=== PATIENT | female | born 1950 | race Caucasian/White ===

== ENCOUNTER → 2016-08-14 | Outpatient (CLI) | payer MEDICARE, OTHER ==
--- NOTE | 2016-08-14 09:07 | REPMRS ---
Patient History The patient states she had a clinical breast exam in 08/2016. Patient is postmenopausal. Family history of breast cancer in maternal aunt at age 50 or over and ovarian cancer in paternal grandmother at age 50 or over. Taking estrogen for 10 years. Digital Woman Screen Mammo: August 14, 2016 - Exam #: [id number] Bilateral CC and MLO view(s) were taken. Technologist: Roxanna Locke, Technologist Prior study comparison: August 14, 2015, digital woman screen mammo performed at [facility] [employer]. August 07, 2014, digital woman screen mammo performed at [facility] [employer] [facility]. August 02, 2013, digital woman screen mammo performed at [facility] [employer]. FINDINGS: The breast tissue is heterogeneously dense. This may lower the sensitivity of mammography. There is a moderate amount of heterogeneously dense fibroglandular tissue which is fairly symmetric. There is no interval development of dominant mass, architectural distortion, or clustered microcalcification typical of malignancy. There has been no change in the appearance of the mammogram from the prior studies. ASSESSMENT: BI-RADS/ACR category 1 mammogram. Negative. Recommendation Routine screening mammogram of both breasts in 1 year (for women over age 40). This mammogram was interpreted with the aid of an FDA-approved computer-aided dectection system. Electronically Signed By: Joaquim Burns MD 08/14/16 0907
== END ==
LOC: M WHC 08:24
PROVIDERS: ATTEND Nurse Practitioner Family
DX: Z01.419 Encounter for gynecological examination (general) (routine) without abnormal findings (principal); Z12.31 Encounter for screening mammogram for malignant neoplasm of breast; Z78.0 Asymptomatic menopausal state; Z12.12 Encounter for screening for malignant neoplasm of rectum
CPT/HCPCS: 82270; G0101; G0202

== ENCOUNTER → 2016-10-15 | Outpatient (CLI) | payer MEDICARE, OTHER ==
[2016-10-15 09:52] LABS: BASO % 0.8 % (0.0-1.0); EOS # 0.2 K/mm3 (0.0-0.50); LARGE UNSTAINED CELL # 0.1 K/mm3 (0.0-0.4); LARGE UNSTAINED CELL % 2.1 % (0.0-4.0); LYMPH # 1.8 K/mm3 (1.5-4.5); LYMPH % 30.4 % (24.0-44.0); MEAN CORPUSCULAR HEMOGLOBIN 31.4 pg (27.0-33.0); MEAN CORPUSCULAR HGB CONC 33.3 g/dl (32.0-36.5); MEAN CORPUSCULAR VOLUME 94.5 fl (80.0-96.0); MONO # 0.4 K/mm3 (0.0-0.8); MONO % 7.2 % (0.0-5.0); NEUTROPHILS # 3.1 K/mm3 (1.8-7.7); NEUTROPHILS % 56.5 % (36.0-66.0); PLATELET COUNT, AUTOMATED 292 k/mm3 (150-450); RED CELL DISTRIBUTION WIDTH 12.2 % (11.5-14.5); WHITE BLOOD COUNT 5.6 K/mm3 (4.0-10.0)
[2016-10-15 12:15] LABS: ALBUMIN 4.1 GM/DL (3.2-5.2); ALBUMIN/GLOBULIN RATIO 1.46 (1.00-1.93); ALKALINE PHOSPHATASE 67 U/L (45-117); ALT/SGPT 25 U/L (12-78); ANION GAP 5 MEQ/L (8-16); AST/SGOT 18 U/L (15-37); BILIRUBIN,TOTAL 0.5 MG/DL (0.2-1.0); BLOOD UREA NITROGEN 17 MG/DL (7-18); CALCIUM LEVEL 9.6 MG/DL (8.8-10.2); CARBON DIOXIDE LEVEL 33 MEQ/L (21-32); CHLORIDE LEVEL 103 MEQ/L (98-107); CHOLESTEROL LEVEL 225 MG/DL (<200); CREATININE FOR GFR 0.82 MG/DL (0.55-1.02); GLOMERULAR FILTRATION RATE > 60.0 (>45); GLUCOSE, FASTING 86 MG/DL (80-110); POTASSIUM SERUM 4.5 MEQ/L (3.5-5.1); SODIUM LEVEL 141 MEQ/L (136-145); TOTAL PROTEIN 6.9 GM/DL (6.4-8.2); TRIGLYCERIDES LEVEL 81 MG/DL (<150)
== END ==
LOC: M WUC 08:01
PROVIDERS: ATTEND Nurse Practitioner Family
DX: E78.5 Hyperlipidemia, unspecified (principal); E55.9 Vitamin D deficiency, unspecified

== ENCOUNTER → 2017-04-28 | Outpatient (REF) | payer MEDICARE, OTHER ==
[2017-04-28 09:46] LABS: ALBUMIN 4.1 GM/DL (3.2-5.2); ALBUMIN/GLOBULIN RATIO 1.41 (1.00-1.93); ALKALINE PHOSPHATASE 59 U/L (45-117); ALT/SGPT 30 U/L (12-78); ANION GAP 7 MEQ/L (8-16); AST/SGOT 20 U/L (15-37); BILIRUBIN,TOTAL 0.6 MG/DL (0.2-1.0); BLOOD UREA NITROGEN 18 MG/DL (7-18); CALCIUM LEVEL 9.6 MG/DL (8.8-10.2); CARBON DIOXIDE LEVEL 30 MEQ/L (21-32); CHLORIDE LEVEL 101 MEQ/L (98-107); CHOLESTEROL LEVEL 192 MG/DL (<200); CREATININE FOR GFR 0.74 MG/DL (0.55-1.02); GLOMERULAR FILTRATION RATE > 60.0 (>45); GLUCOSE, FASTING 85 MG/DL (80-110); POTASSIUM SERUM 4.7 MEQ/L (3.5-5.1); SODIUM LEVEL 138 MEQ/L (136-145); TRIGLYCERIDES LEVEL 81 MG/DL (<150)
== END ==
LOC: M LABWUC 09:07
PROVIDERS: ATTEND Nurse Practitioner Family
DX: E78.5 Hyperlipidemia, unspecified (principal)

== ENCOUNTER → 2017-09-28 | Outpatient (CLI) | payer MEDICARE, OTHER | LOC: M WHC 14:44 | DX: Z12.31 Encounter for screening mammogram for malignant neoplasm of breast (principal); Z01.419 Encounter for gynecological examination (general) (routine) without abnormal findings (principal); Z78.0 Asymptomatic menopausal state; Z80.41 Family history of malignant neoplasm of ovary; Z92.23 Personal history of estrogen therapy; Z12.12 Encounter for screening for malignant neoplasm of rectum; N95.2 Postmenopausal atrophic vaginitis | CPT/HCPCS: 77067 ==

== ENCOUNTER → 2018-09-09 | Outpatient (CLI) | payer MEDICARE, OTHER ==
--- NOTE | 2018-09-09 10:22 | REP ---
Left ring finger series: Four views: History: Sprain. Findings: Four views of the left ring finger demonstrate soft tissue swelling about the PIP joint. There is no evidence of fracture. No opaque foreign body is seen. No erosive change. 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 Impression: Soft-tissue swelling at the PIP joint of the ring finger. No acute bony abnormality. Electronically Signed by Tima Burns MD 09/09/2018 10:39 A
== END ==
LOC: M WUC 09:34
PROVIDERS: ATTEND Physician Assistant
DX: M79.89 Other specified soft tissue disorders (principal); S63.615A Unspecified sprain of left ring finger, initial encounter; X58.XXXA Exposure to other specified factors, initial encounter; Y92.9 Unspecified place or not applicable

== ENCOUNTER → 2018-10-03 | Outpatient (CLI) | payer MEDICARE, OTHER ==
--- NOTE | 2018-10-03 09:38 | REPMRS ---
Patient History The patient states she had a clinical breast exam in 10/2018. Patient is postmenopausal. Family history of breast cancer at age 50 or over in maternal aunt, ovarian cancer at age 50 or over in paternal grandmother. Taking estrogen for 12 years. 3D TOMOSYNTHESIS WAS PERFORMED. Digital Woman Screen Mammo: October 03, 2018 - Exam #: [id number] Bilateral CC and MLO view(s) were taken. Technologist: Roxanna Locke, Technologist Prior study comparison: September 28, 2017, digital woman screen mammo performed at [facility] [email or web address] [facility]. August 14, 2016, digital woman screen mammo performed at [facility] [email or web address] [facility] [email or web address] [facility]. FINDINGS: The breast tissue is heterogeneously dense. This may lower the sensitivity of mammography. There has been no change in the appearance of the mammogram from the prior studies. There is a moderate amount of residual fibroglandular tissue which is fairly symmetric. There is no interval development of dominant mass, areas of architectural distortion, or clustered microcalcification typical of malignancy. Assessment: BI-RADS/ACR category 1 mammogram. Negative Mammogram. Recommendation Routine screening mammogram in 1 year (for women over age 40). This mammogram was interpreted with the aid of an FDA-approved computer-aided dectection system. Electronically Signed By: Dallas Marquez MD 10/03/18 0938
--- NOTE | 2018-10-04 09:33 | DEXA ---
AP SPINE L1 - L4 1.068 -1.0 0.6 LT FEMUR TOTAL 0.869 -1.1 0.3 LT NECK 0.801 -1.7 -0.1 RT FEMUR TOTAL 0.849 -1.3 0.1 RT NECK 0.782 -1.8 -0.2 TOTAL BODY TOTAL OTHER COMMENTS: There is low bone density of the spine and hips. The increased density of the spine does not represent a significant change. The decreased density of the left hip does not represent a significant change. The density of the spine has decreased 2.5% since the initial exam on 05/09/2002. The spine density has increased 0.4% since the most recent exam on 08/14/2015. The density of the left hip has decreased 5.2% since the initial exam on 05/09/2002. The density of the left hip has decreased 0.7% since the most recent exam on 08/14/2015. The density of the right hip has decreased 4.1% since the initial exam on 05/09/2002. The density of the right hip has not changed since the most recent exam on 08/14/2015. FOLLOW-UP: Recommendation for the next bone density exam: 2 years. MONIQUE
== END ==
LOC: M WHC 08:22
PROVIDERS: ATTEND Nurse Practitioner Family
DX: Z12.31 Encounter for screening mammogram for malignant neoplasm of breast (principal); M85.80 Other specified disorders of bone density and structure, unspecified site; Z78.0 Asymptomatic menopausal state; Z92.23 Personal history of estrogen therapy
CPT/HCPCS: 77063; 77067; 77080; G0463

== ENCOUNTER → 2019-12-28 | Outpatient (CLI) | payer MEDICARE, OTHER ==
--- NOTE | 2019-12-28 10:40 | REPMRS ---
Patient History The patient states she had a clinical breast exam in December 2019.Family history of breast cancer at age 50 or over in maternal aunt, ovarian cancer at age 50 or over in paternal grandmother. Taking estrogen for 12 years. Digital Woman Screen Mammo: December 28, 2019 - Exam #: [id number] Bilateral CC and MLO view(s) were taken. Technologist: Helena Hodge, Technologist Prior study comparison: October 03, 2018, bilateral digital woman screen mammo performed at [facility]. September 28, 2017, digital woman screen mammo performed at [facility]. August 14, 2016, digital woman screen mammo performed at [facility]. FINDINGS: There are scattered fibroglandular densities. The Volpara volumetric breast density category is:B. There has been no change in the appearance of the mammogram from the prior studies. There is a mild amount of scattered fibroglandular density which is fairly symmetric. There is no interval development of dominant mass, architectural distortion, or grouped microcalcification suggestive of malignancy. 3-D tomosynthesis shows no additional findings. Assessment: BI-RADS/ACR category 1 mammogram. Negative Mammogram. Recommendation Routine screening mammogram of both breasts in 1 year (for women over age 40). This patient's Lifetime Breast Cancer Risk is estimated at 8.3 %. This mammogram was interpreted with the aid of an FDA-approved computer-aided dectection system. Electronically Signed By: Joaquim Burns MD 12/28/19 [id number]
== END ==
LOC: M WHC 09:04
PROVIDERS: ATTEND Nurse Practitioner Family
DX: Z12.31 Encounter for screening mammogram for malignant neoplasm of breast (principal); Z92.23 Personal history of estrogen therapy
CPT/HCPCS: 77063; 77067; 82270; G0101

== ENCOUNTER → 2020-04-10 | Outpatient (REF) | payer MEDICARE, OTHER ==
[2020-04-10 11:23] LABS: ALBUMIN 3.7 GM/DL (3.2-5.2); ALT/SGPT 26 U/L (12-78); BILIRUBIN,TOTAL 0.6 MG/DL (0.2-1.0); BLOOD UREA NITROGEN 13 MG/DL (7-18); CALCIUM LEVEL 9.3 MG/DL (8.8-10.2); CARBON DIOXIDE LEVEL 30 MEQ/L (21-32); CHLORIDE LEVEL 106 MEQ/L (98-107); CHOLESTEROL LEVEL 206 MG/DL (<200); CHOLESTEROL RISK RATIO 3.433 (<5); CREATININE FOR GFR 0.78 MG/DL (0.55-1.30); GLOMERULAR FILTRATION RATE > 60.0 (>45); GLUCOSE, FASTING 81 MG/DL (70-100); HDL CHOLESTEROL 60 MG/DL (>40); LDL CHOLESTEROL 116 MG/DL (<100); NON-HDL-C 146 MG/DL; POTASSIUM SERUM 4.3 MEQ/L (3.5-5.1); SODIUM LEVEL 139 MEQ/L (136-145); TOTAL 25(OH) VITAMIN D 50.1 NG/ML (30.0-100.0); TOTAL PROTEIN 6.9 GM/DL (6.4-8.2); TRIGLYCERIDES LEVEL 152 MG/DL (<150)
== END ==
LOC: M PLALAB 08:04
PROVIDERS: ATTEND Nurse Practitioner Family
DX: E78.5 Hyperlipidemia, unspecified (principal); E55.9 Vitamin D deficiency, unspecified

== ENCOUNTER → 2021-01-09 | Outpatient (CLI) | payer MEDICARE, OTHER ==
--- NOTE | 2021-01-09 10:42 | REPMRS ---
Patient History The patient states she had a clinical breast exam in January 2021. Patient is postmenopausal and has history of melanoma at age 68. Family history of breast cancer at age 50 or over in maternal aunt, ovarian cancer at age 50 or over in paternal grandmother. Taking estrogen for 13 years. Patient states no breast complaints today. Patient has signed MRS History Sheet. Digital Woman Screen Mammo: January 09, 2021 - Exam #: [id number] Bilateral CC and MLO view(s) were taken. Technologist: Carla Sampson, Technologist Prior study comparison: December 28, 2019, bilateral digital woman screen mammo performed at [facility]. October 03, 2018, bilateral digital woman screen mammo performed at [facility]. September 28, 2017, digital woman screen mammo performed at [facility]. FINDINGS: There are scattered fibroglandular densities. The Volpara volumetric breast density category is:B. There has been no change in the appearance of the mammogram from the prior studies. There is a mild amount of scattered fibroglandular density which is fairly symmetric. There is no interval development of dominant mass, architectural distortion, or grouped microcalcification suggestive of malignancy. 3-D tomosynthesis shows no additional findings. Assessment: BI-RADS/ACR category 1 mammogram. Negative Mammogram. Recommendation Routine screening mammogram of both breasts in 1 year (for women over age 40). This patient's [facility] Lifetime Breast Cancer Risk is estimated at 7.8 %. This mammogram was interpreted with the aid of an FDA-approved computer-aided dectection system. Electronically Signed By: Joaquim Burns MD 01/09/21 3068
== END ==
LOC: M WHC 08:22
PROVIDERS: ATTEND Advanced Practice Midwife
DX: Z01.419 Encounter for gynecological examination (general) (routine) without abnormal findings (principal); Z12.31 Encounter for screening mammogram for malignant neoplasm of breast; Z78.0 Asymptomatic menopausal state; Z85.820 Personal history of malignant melanoma of skin; Z92.23 Personal history of estrogen therapy
CPT/HCPCS: 77063; 77067; G0101

== ENCOUNTER → 2021-04-16 | Outpatient (CLI) | payer MEDICARE, OTHER ==
[2021-04-16 10:57] LABS: HEMOGLOBIN A1c 5.2 %
[2021-04-16 10:58] LABS: ALBUMIN 3.7 GM/DL (3.2-5.2); ALT/SGPT 31 U/L (12-78); BILIRUBIN,TOTAL 0.6 MG/DL (0.2-1.0); BLOOD UREA NITROGEN 9 MG/DL (7-18); CALCIUM LEVEL 8.8 MG/DL (8.8-10.2); CARBON DIOXIDE LEVEL 30 MEQ/L (21-32); CHLORIDE LEVEL 106 MEQ/L (98-107); CHOLESTEROL LEVEL 182 MG/DL (<200); CHOLESTEROL RISK RATIO 2.394 (<5); CREATININE FOR GFR 0.76 MG/DL (0.55-1.30); GLOMERULAR FILTRATION RATE > 60.0 (>39); GLUCOSE, FASTING 79 MG/DL (70-100); HDL CHOLESTEROL 76 MG/DL (>40); LDL CHOLESTEROL 92 MG/DL (<100); NON-HDL-C 106 MG/DL; POTASSIUM SERUM 4.2 MEQ/L (3.5-5.1); SODIUM LEVEL 141 MEQ/L (136-145); TOTAL 25(OH) VITAMIN D 40.8 NG/ML (30.0-100.0); TOTAL PROTEIN 6.7 GM/DL (6.4-8.2); TRIGLYCERIDES LEVEL 72 MG/DL (<150)
== END ==
LOC: M PLALAB 08:10
PROVIDERS: ATTEND Nurse Practitioner Family
DX: E55.9 Vitamin D deficiency, unspecified (principal); E78.5 Hyperlipidemia, unspecified

== ENCOUNTER → 2021-11-04 | Outpatient (REF) | payer MEDICARE, OTHER ==
[2021-11-04 17:49] LABS: APPEARANCE, URINE HAZY (CLEAR); BACTERIA, URINE AUTO 1+ (NEGATIVE); BILIRUBIN, URINE AUTO NEGATIVE (NEGATIVE); BLOOD, URINE BLOOD 3+ (NEGATIVE); COLOR, URINE RED (YELLOW); GLUCOSE, URINE (UA) AUTO NEGATIVE (NEGATIVE); KETONE, URINE AUTO NEGATIVE (NEGATIVE); LEUKOCYTE ESTERASE, URINE AUTO 3+ (NEGATIVE); MUCUS, URINE SMALL (NEGATIVE); NITRITE, URINE AUTO NEGATIVE (NEGATIVE); PROTEIN, URINE AUTO 2+ mg/dL (NEGATIVE); RBC, URINE AUTO 2 /HPF (0-3); SPECIFIC GRAVITY URINE AUTO 1.002 (1.002-1.035); SQUAMOUS EPITHELIAL CELL UR AU 0 /HPF (0-6); UROBILINOGEN, URINE AUTO 0.2 mg/dL (0.0-2.0); WBC, URINE AUTO 4 /HPF (0-3)
== END ==
LOC: M SFHCPLAZ 16:58
PROVIDERS: ATTEND Physician Assistant Medical
DX: R30.0 Dysuria (principal)

== ENCOUNTER → 2022-03-24 | Outpatient (REF) | payer MEDICARE, OTHER | LOC: M SFHCPLAZ 13:31 | PROVIDERS: ATTEND Nurse Practitioner Family | DX: J02.9 Acute pharyngitis, unspecified (principal) ==

== ENCOUNTER → 2022-04-09 | Outpatient (CLI) | payer MEDICARE, OTHER | LOC: M WHC 14:51 | PROVIDERS: ATTEND Nurse Practitioner Family | DX: Z12.31 Encounter for screening mammogram for malignant neoplasm of breast (principal) ==

== ENCOUNTER → 2022-04-21 | Outpatient (CLI) | payer MEDICARE, OTHER ==
[2022-04-21 11:57] LABS: BASO % 0.9 % (0.0-1.0); EOS # 0.1 10^3/uL (0.0-0.5); EOS % 2.3 % (0.0-3.0); HEMATOCRIT 40.9 % (36.0-47.0); HEMOGLOBIN 13.4 g/dl (12.0-15.5); LYMPH # 1.9 10^3/uL (1.5-5.0); LYMPH % 43.6 % (24.0-44.0); MEAN CORPUSCULAR HEMOGLOBIN 32.5 pg (27.0-33.0); MEAN CORPUSCULAR HGB CONC 32.8 g/dl (32.0-36.5); MEAN CORPUSCULAR VOLUME 99.3 fl (80.0-96.0); MONO # 0.5 10^3/uL (0.0-0.8); MONO % 11.4 % (2.0-8.0); NEUTROPHILS # 1.8 10^3/uL (1.5-8.5); NEUTROPHILS % 41.6 % (36.0-66.0); PLATELET COUNT, AUTOMATED 279 10^3/uL (150-450); RED BLOOD COUNT 4.12 10^6/uL (4.00-5.40); WHITE BLOOD COUNT 4.3 10^3/uL (4.0-10.0)
[2022-04-21 12:27] LABS: ALBUMIN 3.9 GM/DL (3.2-5.2); ALT/SGPT 20 U/L (12-78); BILIRUBIN,TOTAL 0.6 MG/DL (0.2-1.0); BLOOD UREA NITROGEN 8 MG/DL (7-18); CALCIUM LEVEL 9.4 MG/DL (8.8-10.2); CARBON DIOXIDE LEVEL 31 MEQ/L (21-32); CHLORIDE LEVEL 103 MEQ/L (98-107); CHOLESTEROL LEVEL 251 MG/DL (<200); CHOLESTEROL RISK RATIO 3.861 (<5); GLOMERULAR FILTRATION RATE > 60.0 (>39); GLUCOSE, FASTING 91 MG/DL (70-100); HDL CHOLESTEROL 65 MG/DL (>40); LDL CHOLESTEROL 158 MG/DL (<100); NON-HDL-C 186 MG/DL; POTASSIUM SERUM 4.1 MEQ/L (3.5-5.1); SODIUM LEVEL 138 MEQ/L (136-145); TRIGLYCERIDES LEVEL 138 MG/DL (<150)
[2022-04-21 12:59] LABS: TOTAL 25(OH) VITAMIN D 33.6 NG/ML (30.0-100.0)
== END ==
LOC: M PLALAB 07:52
PROVIDERS: ATTEND Nurse Practitioner Family
DX: Z00.00 Encounter for general adult medical examination without abnormal findings (principal); E55.9 Vitamin D deficiency, unspecified; E78.5 Hyperlipidemia, unspecified

== ENCOUNTER → 2023-03-19 | Outpatient (CLI) | payer MEDICARE, OTHER | LOC: M PLAIMG 09:20 | PROVIDERS: ATTEND Nurse Practitioner Family | DX: R09.89 Other specified symptoms and signs involving the circulatory and respiratory systems (principal) ==

== ENCOUNTER → 2023-04-15 | Outpatient (CLI) | payer MEDICARE, OTHER ==
[2023-04-15 10:44] LABS: BASO # 0.1 10^3/uL (0.0-0.2); BASO % 1.4 % (0.0-1.0); EOS # 0.1 10^3/uL (0.0-0.5); EOS % 3.1 % (0.0-3.0); HEMATOCRIT 42.2 % (36.0-47.0); HEMOGLOBIN 13.8 g/dl (12.0-15.5); LYMPH # 1.6 10^3/uL (1.5-5.0); MEAN CORPUSCULAR HEMOGLOBIN 32.2 pg (27.0-33.0); MEAN CORPUSCULAR HGB CONC 32.7 g/dl (32.0-36.5); MEAN CORPUSCULAR VOLUME 98.4 fl (80.0-96.0); MONO # 0.5 10^3/uL (0.0-0.8); MONO % 10.8 % (2.0-8.0); NEUTROPHILS % 46.5 % (36.0-66.0); PLATELET COUNT, AUTOMATED 313 10^3/uL (150-450); RED BLOOD COUNT 4.29 10^6/uL (4.00-5.40); WHITE BLOOD COUNT 4.2 10^3/uL (4.0-10.0)
[2023-04-15 11:22] LABS: ALBUMIN 3.7 G/DL (3.2-5.2); ALKALINE PHOSPHATASE 80 U/L (46-116); ALT/SGPT 25 U/L (7.0-40); AST/SGOT 23 U/L (<34); BILIRUBIN,TOTAL 0.5 MG/DL (0.3-1.2); BLOOD UREA NITROGEN 8 MG/DL (9-23); CALCIUM LEVEL 9.4 MG/DL (8.3-10.6); CARBON DIOXIDE LEVEL 31 MMOL/L (20-31); CHLORIDE LEVEL 106 MMOL/L (98-107); CHOLESTEROL LEVEL 173 MG/DL (<200); CHOLESTEROL RISK RATIO 3.04 (<5); CREATININE FOR GFR 0.75 MG/DL (0.55-1.30); GLOMERULAR FILTRATION RATE > 60.0 (>39); GLUCOSE, FASTING 86 MG/DL (74-106); HDL CHOLESTEROL 56.9 MG/DL (>40); LDL CHOLESTEROL 90.3 MG/DL (<100); NON-HDL-C 116.1 MG/DL; POTASSIUM SERUM 4.5 MMOL/L (3.5-5.1); SODIUM LEVEL 140 MMOL/L (136-145); TOTAL 25(OH) VITAMIN D 34.6 NG/ML (20.0-100.0); TOTAL PROTEIN 6.6 G/DL (5.7-8.2); TRIGLYCERIDES LEVEL 129 MG/DL (<150)
== END ==
LOC: M PLALAB 07:49
PROVIDERS: ATTEND Nurse Practitioner Family
DX: Z00.00 Encounter for general adult medical examination without abnormal findings (principal); E78.5 Hyperlipidemia, unspecified; E55.9 Vitamin D deficiency, unspecified

== ENCOUNTER → 2023-09-15 | Outpatient (CLI) | payer MEDICARE, OTHER | LOC: M WHC 08:36 | PROVIDERS: ATTEND Nurse Practitioner Family | DX: Z12.31 Encounter for screening mammogram for malignant neoplasm of breast (principal) ==

== ENCOUNTER → 2023-09-15 | Outpatient (CLI) | payer MEDICARE, OTHER | LOC: M WHC 08:37 | PROVIDERS: ATTEND Nurse Practitioner Family | DX: Z12.31 Encounter for screening mammogram for malignant neoplasm of breast (principal); M85.88 Other specified disorders of bone density and structure, other site ==

== ENCOUNTER → 2024-04-19 | Outpatient (CLI) | payer MEDICARE, OTHER ==
[2024-04-19 11:58] LABS: BASO % 0.2 % (0.0-1.0); EOS % 0.1 % (0.0-3.0); HEMATOCRIT 40.1 % (36.0-47.0); HEMOGLOBIN 13.1 g/dl (12.0-15.5); LYMPH # 3.2 10^3/uL (1.5-5.0); LYMPH % 34.1 % (24.0-44.0); MEAN CORPUSCULAR HEMOGLOBIN 32.2 pg (27.0-33.0); MEAN CORPUSCULAR HGB CONC 32.7 g/dl (32.0-36.5); MEAN CORPUSCULAR VOLUME 98.5 fl (80.0-96.0); MONO # 0.9 10^3/uL (0.0-0.8); MONO % 9.5 % (2.0-8.0); NEUTROPHILS # 5.2 10^3/uL (1.5-8.5); NEUTROPHILS % 55.9 % (36.0-66.0); PLATELET COUNT, AUTOMATED 337 10^3/uL (150-450); RED BLOOD COUNT 4.07 10^6/uL (4.00-5.40); WHITE BLOOD COUNT 9.4 10^3/uL (4.0-10.0)
[2024-04-19 12:00] LABS: ALBUMIN 3.9 G/DL (3.2-5.2); ALKALINE PHOSPHATASE 78 U/L (46-116); ALT/SGPT 18 U/L (7.0-40); AST/SGOT 15 U/L (<34); BILIRUBIN,TOTAL 0.6 MG/DL (0.3-1.2); BLOOD UREA NITROGEN 13 MG/DL (9-23); CARBON DIOXIDE LEVEL 31 MMOL/L (20-31); CHLORIDE LEVEL 106 MMOL/L (98-107); CHOLESTEROL LEVEL 213 MG/DL (<200); CHOLESTEROL RISK RATIO 2.96 (<5); CREATININE FOR GFR 0.63 MG/DL (0.55-1.30); GLOMERULAR FILTRATION RATE > 60.0 (>39); GLUCOSE, FASTING 87 MG/DL (74-106); HDL CHOLESTEROL 71.8 MG/DL (>40); LDL CHOLESTEROL 106.8 MG/DL (<100); NON-HDL-C 141.2 MG/DL; POTASSIUM SERUM 4.2 MMOL/L (3.5-5.1); SODIUM LEVEL 140 MMOL/L (136-145); TOTAL PROTEIN 6.8 G/DL (5.7-8.2); TRIGLYCERIDES LEVEL 172 MG/DL (<150)
[2024-04-19 12:02] LABS: TOTAL 25(OH) VITAMIN D 26.9 NG/ML (20.0-100.0)
== END ==
LOC: M PLALAB 07:54
PROVIDERS: ATTEND Nurse Practitioner Family
DX: Z00.00 Encounter for general adult medical examination without abnormal findings (principal); E78.5 Hyperlipidemia, unspecified; E55.9 Vitamin D deficiency, unspecified

== ENCOUNTER → 2024-08-15 | Outpatient (REF) | payer MEDICARE, OTHER | LOC: M SFHCDERM 16:40 | PROVIDERS: ATTEND Dermatology | DX: Z51.89 Encounter for other specified aftercare (principal) ==

== ENCOUNTER → 2024-10-04 | Outpatient (CLI) | payer MEDICARE, OTHER | LOC: M WHC 10:18 | PROVIDERS: ATTEND Advanced Practice Midwife | DX: Z12.31 Encounter for screening mammogram for malignant neoplasm of breast (principal); R92.333 Mammographic heterogeneous density, bilateral breasts ==

== ENCOUNTER → 2024-10-11 | Outpatient (REF) | payer MEDICARE, OTHER | LOC: M SFHCDERM 09:43 | PROVIDERS: ATTEND Dermatology | DX: D48.5 Neoplasm of uncertain behavior of skin (principal); C44.612 Basal cell carcinoma of skin of right upper limb, including shoulder ==

== ENCOUNTER → 2024-11-07 | Outpatient (REF) | payer MEDICARE, OTHER | LOC: M LAB REF 15:35 | PROVIDERS: ATTEND Surgery | DX: C44.612 Basal cell carcinoma of skin of right upper limb, including shoulder (principal) ==

== ENCOUNTER → 2025-05-02 | Outpatient (REF) | payer MEDICARE, OTHER ==
[2025-05-02 11:41] LABS: ALT/SGPT 20.0 U/L (7.0-40); AST/SGOT 24.0 U/L (<34); CALCIUM LEVEL 10.0 MG/DL (8.3-10.6); CARBON DIOXIDE LEVEL 31.0 MMOL/L (20-31); CHLORIDE LEVEL 104.0 MMOL/L (98-107); CHOLESTEROL LEVEL 213.0 MG/DL (<200); CHOLESTEROL RISK RATIO 3.83 (<5); CREATININE FOR GFR 0.76 MG/DL (0.55-1.30); GLOMERULAR FILTRATION RATE 82.2 (>39); LDL CHOLESTEROL 113.8 MG/DL (<100); NON-HDL-C 157.4 MG/DL; POTASSIUM SERUM 4.8 MMOL/L (3.5-5.1); SODIUM LEVEL 143.0 MMOL/L (136-145); TRIGLYCERIDES LEVEL 218.0 MG/DL (<150)
[2025-05-02 11:43] LABS: BASO # 0.1 10^3/uL (0.0-0.2); BASO % 1.0 % (0.0-1.0); EOS # 0.1 10^3/uL (0.0-0.5); EOS % 1.6 % (0.0-3.0); LYMPH # 1.8 10^3/uL (1.5-5.0); LYMPH % 35.9 % (24.0-44.0); MONO # 0.6 10^3/uL (0.0-0.8); MONO % 12.5 % (2.0-8.0); NEUTROPHILS # 2.4 10^3/uL (1.5-8.5); NEUTROPHILS % 48.8 % (36.0-66.0); PLATELET COUNT, AUTOMATED 302 10^3/uL (150-450)
== END ==
LOC: M LABDRWAD 10:53
PROVIDERS: ATTEND Nurse Practitioner Family
DX: Z00.00 Encounter for general adult medical examination without abnormal findings (principal); E78.5 Hyperlipidemia, unspecified; E55.9 Vitamin D deficiency, unspecified